=== PATIENT | female | born 1975 | race Caucasian/White ===

== ENCOUNTER 2020-05-15 21:17 | Emergency (ER) | payer BC ==
[~2020-05-15] VITALS: Ht 157.5 cm; Wt 74.5 kg
[~2020-05-15 21:17] MED LIST: ATEN50TA2
[2020-05-15 21:52] LABS: HEMATOCRIT 40.9 % (36.0-47.0); HEMOGLOBIN 13.8 g/dl (12.0-15.5); MEAN CORPUSCULAR HEMOGLOBIN 33.7 pg (27.0-33.0); MEAN CORPUSCULAR HGB CONC 33.7 g/dl (32.0-36.5); PLATELET COUNT, AUTOMATED 257 10^3/uL (150-450); RED BLOOD COUNT 4.09 10^6/uL (4.00-5.40); WHITE BLOOD COUNT 11.5 10^3/uL (4.0-10.0)
[2020-05-15] MEDS ORDERED: SERT-138 (22:05)
[2020-05-15] MEDS ORDERED: ESTR1TAB (22:05)
[2020-05-15 22:11] LABS: ACETAMINOPHEN LEVEL < 2.0 UG/ML (10.0-30.0); ALBUMIN 3.8 GM/DL (3.2-5.2); ALT/SGPT 26 U/L (12-78); BILIRUBIN,DIRECT < 0.1 MG/DL (0.0-0.2); BILIRUBIN,TOTAL 0.1 MG/DL (0.2-1.0); BLOOD UREA NITROGEN 13 MG/DL (7-18); CALCIUM LEVEL 8.7 MG/DL (8.5-10.1); CARBON DIOXIDE LEVEL 22 MEQ/L (21-32); CHLORIDE LEVEL 106 MEQ/L (98-107); CREATININE FOR GFR 1.19 MG/DL (0.55-1.30); ETHYL ALCOHOL (ETHANOL) 0.279 % (0.000-0.010); GLOMERULAR FILTRATION RATE 52.2 (>58); GLUCOSE, FASTING 102 MG/DL (70-100); POTASSIUM SERUM 4.2 MEQ/L (3.5-5.1); SALICYLATE LEVEL 4.5 MG/DL (5.0-30.0); SODIUM LEVEL 139 MEQ/L (136-145); TOTAL PROTEIN 7.3 GM/DL (6.4-8.2)
[2020-05-15 22:32] LABS: AMPHETAMINES LEVEL URINE NEGATIVE (NEGATIVE); BARBITURATES URINE NEGATIVE (NEGATIVE); BENZODIAZEPINES URINE NEGATIVE (NEGATIVE); CANNABINOIDS URINE NEGATIVE (NEGATIVE); COCAINE METABOLITE URINE NEGATIVE (NEGATIVE); METHADONE URINE NEGATIVE (NEGATIVE); OPIATES URINE NEGATIVE (NEGATIVE); PHENCYCLIDINE URINE NEGATIVE (NEGATIVE)
[2020-05-16 09:56] VITALS: BP 159/81
--- NOTE | 2020-06-02 07:50 | ECGEPIP ---
[facility] - ED Test Date: 2020-05-15 Pat Name: GALLITO FITZGERALD Department: Room: - Gender: Female [employer] Systems Manager: JOSE ANTONIO : 1975 Requested By: SONYA SCHAFER Order Number: [id number] Reading MD: Lewis Guerrero Measurements Intervals [place] Rate: 97 P: 28 ME: 140 QRS: 32 QRSD: 92 T: 35 QT: 356 QTc: 454 Interpretive Statements SINUS RHYTHM BORDERLINE ECG SEE SCANNED DOWNTIME REPORT
== END 2020-05-16 10:01 | disposition home or self-care (01) ==
LOC: M ED 21:17
DX: T44.7X2A Poisoning by beta-adrenoreceptor antagonists, intentional self-harm, initial encounter (principal); F10.129 Alcohol abuse with intoxication, unspecified; Y92.9 Unspecified place or not applicable; Y93.9 Activity, unspecified; I10 Essential (primary) hypertension; Z79.890 Hormone replacement therapy; Z79.899 Other long term (current) drug therapy; Z88.2 Allergy status to sulfonamides
CPT/HCPCS: 80048; 80076; 80307; 84443; 85027; 93005; 99285; G0480

== ENCOUNTER → 2020-08-31 | Outpatient (CLI) | payer BC ==
[~2020-08-31] MED LIST changes: +ESTR1TAB; +SERT-138
--- NOTE | 2020-08-31 16:38 | REP ---
INDICATION: THUMB SPRAIN COMPARISON: None. TECHNIQUE: Four views. FINDINGS: There is no fracture or dislocation. Mineralization and joint spaces are normal. There are no calcifications or foreign bodies. IMPRESSION: Negative left thumb. <Electronically signed by Lenin Steen > 08/31/20 [id number]
== END ==
LOC: M WUC 13:22
PROVIDERS: ATTEND Physician Assistant
DX: S63.622A Sprain of interphalangeal joint of left thumb, initial encounter (principal); X58.XXXA Exposure to other specified factors, initial encounter; Y92.9 Unspecified place or not applicable